=== PATIENT | male | born 1955 | race Two or more races ===

== ENCOUNTER 2021-11-07 13:20 | Observation (INO) | payer OTHER ==
[2021-11-07 13:40] VITALS: BMI 23.0
[2021-11-07] MEDS ORDERED: PANTOPRAZOLE SODIUM 40 MG VIAL IVPUSH ONE (14:19)
[2021-11-07] MEDS ORDERED: PANTOPRAZOLE SODIUM 40 MG VIAL ONE (14:55)
[2021-11-07 15:41] LABS: BASO % 0.5 % (0-2.0); EOS % 0.7 % (0-4.5); HEMATOCRIT 27.9 % (35.4-49); HEMOGLOBIN 9.2 GM/dL (11.7-16.9); LYMPH % 20.5 % (8-40); MCH 30.4 pg (25.7-33.7); MCHC 33.1 g/dl (32.0-35.9); MEAN CELL VOLUME 91.9 fl (80-96); MONO % 5.9 % (3.8-10.2); NEUT % 72.4 % (42.8-82.8); PLATELET COUNT 272 10^3/uL (134-434); RBC 3.04 M/mm3 (4.00-5.60); WHITE BLOOD COUNT 9.6 K/mm3 (4.0-10.0)
[2021-11-07 15:46] LABS: INR 1.08 (0.83-1.09); PROTHROMBIN TIME (PATIENT) 12.4 SEC (9.7-13.0)
[2021-11-07 15:49] LABS: ACTIVATED PTT 27.4 SECONDS (25.2-36.5)
[2021-11-07 16:03] LABS: ALBUMIN 3.6 g/dl (3.4-5.0); BLOOD UREA NITROGEN 31.1 mg/dL (7-18); CALCIUM 8.9 mg/dL (8.5-10.1)
[2021-11-07 16:07] LABS: CREATININE 2.1 mg/dL (0.55-1.3); TOT PROT 7.1 g/dl (6.4-8.2)
[2021-11-07 16:09] LABS: BILIRUBIN,TOTAL 0.5 mg/dL (0.2-1)
[2021-11-07] MEDS: PANTOPRAZOLE SODIUM 80 MG in SODIUM CHLORIDE 100 ML IVPB SCH (22:10)
[2021-11-07] MEDS ORDERED: DEXTROSE 5%-0.45% SALINE 1,000 ML IV SCH (22:30)
[2021-11-08] MEDS: DEXTROSE 5%-0.45% SALINE 1,000 ML IV SCH ×2 (01:17→16:37)
[2021-11-08] MEDS: PANTOPRAZOLE SODIUM 80 MG in SODIUM CHLORIDE 100 ML IVPB SCH (05:01)
[2021-11-08] MEDS ORDERED: PNEUMOC 20-VAL CONJ-DIP CRM/PF 0.5 ML SYRINGE IM ONE (14:00)
[2021-11-08] MEDS: MAG HYDROX/AL HYDROX/SIMETH 30 ML UNIT-DOSE CUP PO SCH ×3 (15:07→23:29)
[2021-11-08] MEDS ORDERED: IRON SUCROSE INJECTION 200 MG in SODIUM CHLORIDE 90 ML IVPB ONE (15:30)
[2021-11-08 17:00] LABS: INR 1.14 (0.83-1.09); PROTHROMBIN TIME (PATIENT) 13.1 SEC (9.7-13.0)
[2021-11-08 17:06] LABS: BASO % 0.6 % (0-2.0); EOS % 0.8 % (0-4.5); HEMOGLOBIN 8.5 GM/dL (11.7-16.9); MCH 30.8 pg (25.7-33.7); MCHC 33.8 g/dl (32.0-35.9); MONO % 7.4 % (3.8-10.2); NEUT % 68.2 % (42.8-82.8); PLATELET COUNT 234 10^3/uL (134-434); RBC 2.75 M/mm3 (4.00-5.60); RDW 14.2 % (11.9-15.9); WHITE BLOOD COUNT 5.3 K/mm3 (4.0-10.0)
[2021-11-08 17:28] LABS: ALBUMIN 3.1 g/dl (3.4-5.0); BILIRUBIN,TOTAL 0.4 mg/dL (0.2-1); BLOOD UREA NITROGEN 19.5 mg/dL (7-18); CALCIUM 8.4 mg/dL (8.5-10.1); CREATININE 1.2 mg/dL (0.55-1.3); TOT PROT 6.2 g/dl (6.4-8.2)
[2021-11-08] MEDS: PANTOPRAZOLE 40 MG TABLET PO SCH (21:28)
[2021-11-09] MEDS: DEXTROSE 5%-0.45% SALINE 1,000 ML IV SCH ×2 (01:53→17:38)
[2021-11-09] MEDS: MAG HYDROX/AL HYDROX/SIMETH 30 ML UNIT-DOSE CUP PO SCH ×3 (05:11→17:37)
[2021-11-09] MEDS ORDERED: LOSARTAN POTASSIUM 25 MG TABLET PO SCH (10:00)
[2021-11-09] MEDS: PANTOPRAZOLE 40 MG TABLET PO SCH ×2 (10:58→21:26)
[2021-11-09] MEDS ORDERED: DOCUSATE SODIUM 100 MG CAPSULE (FP) PO PRN (12:18)
[2021-11-09 12:35] LABS: BASO % 0.4 % (0-2.0); EOS % 0.6 % (0-4.5); HEMATOCRIT 25.8 % (35.4-49); HEMOGLOBIN 8.7 GM/dL (11.7-16.9); LYMPH % 16.8 % (8-40); MCH 30.8 pg (25.7-33.7); MCHC 33.8 g/dl (32.0-35.9); MEAN CELL VOLUME 90.9 fl (80-96); MONO % 7.3 % (3.8-10.2); NEUT % 74.9 % (42.8-82.8); PLATELET COUNT 248 10^3/uL (134-434); RBC 2.83 M/mm3 (4.00-5.60); RDW 14.2 % (11.9-15.9); WHITE BLOOD COUNT 7.2 K/mm3 (4.0-10.0)
[2021-11-09 13:42] LABS: BILIRUBIN,TOTAL 0.2 mg/dL (0.2-1); BLOOD UREA NITROGEN 13.9 mg/dL (7-18)
[2021-11-09 13:44] LABS: CALCIUM 8.4 mg/dL (8.5-10.1)
[2021-11-09 13:45] LABS: ALBUMIN 3.1 g/dl (3.4-5.0); TOT PROT 6.3 g/dl (6.4-8.2)
[2021-11-09] MEDS: FERROUS SO4 325 MG TABLET (FP) PO SCH (17:37)
[2021-11-10] MEDS: MAG HYDROX/AL HYDROX/SIMETH 30 ML UNIT-DOSE CUP PO SCH ×3 (00:14→12:08)
[2021-11-10] MEDS: DEXTROSE 5%-0.45% SALINE 1,000 ML IV SCH (06:33)
[2021-11-10 10:17] LABS: BASO % 0.5 % (0-2.0); EOS % 1.4 % (0-4.5); HEMOGLOBIN 8.4 GM/dL (11.7-16.9); LYMPH % 15.9 % (8-40); MCHC 33.6 g/dl (32.0-35.9); MEAN CELL VOLUME 92.2 fl (80-96); MEAN PLT VOLUME 9.8 fl (7.5-11.1); MONO % 7.2 % (3.8-10.2); PLATELET COUNT 230 10^3/uL (134-434); RBC 2.71 M/mm3 (4.00-5.60); RDW 14.5 % (11.9-15.9); WHITE BLOOD COUNT 7.2 K/mm3 (4.0-10.0)
[2021-11-10] MEDS: PANTOPRAZOLE 40 MG TABLET PO SCH (10:22)
[2021-11-10] MEDS: FERROUS SO4 325 MG TABLET (FP) PO SCH (10:23)
[2021-11-10 10:28] VITALS: BP 140/96; PULSE 94; RESP 16; TEMP 98.7
[2021-11-10 10:37] LABS: CALCIUM 8.3 mg/dL (8.5-10.1)
[2021-11-10 10:39] LABS: ALBUMIN 3.1 g/dl (3.4-5.0); BLOOD UREA NITROGEN 15.3 mg/dL (7-18)
[2021-11-10 10:42] LABS: BILIRUBIN,TOTAL 0.3 mg/dL (0.2-1); TOT PROT 6.3 g/dl (6.4-8.2)
== END 2021-11-10 14:28 | disposition home or self-care (01) ==
LOC: JER 13:20 → JERBED 16:27 → UNDOADMOB 16:27 → INTOOBSV 16:27 → JERBED 11-08 00:36 → J5S 11-08 00:36
PROVIDERS: ADMIT Internal Medicine; ATTEND Internal Medicine
PROC: 3E033GC Introduction of Other Therapeutic Substance into Peripheral Vein, Percutaneous Approach (ICD-10-PCS; 2021-11-08)
PROC: 3E023GC Introduction of Other Therapeutic Substance into Muscle, Percutaneous Approach (ICD-10-PCS; 2021-11-08)
PROC: 0DJ08ZZ Inspection of Upper Intestinal Tract, Via Natural or Artificial Opening Endoscopic (ICD-10-PCS; principal; 2021-11-08 09:00)
DX: K92.2 Gastrointestinal hemorrhage, unspecified (principal); N17.9 Acute kidney failure, unspecified; I10 Essential (primary) hypertension; Z87.442 Personal history of urinary calculi; N20.0 Calculus of kidney; D64.9 Anemia, unspecified; K92.1 Melena
CPT/HCPCS: 36415; 71045-TC-FY; 80048; 80053; 82272; 82728; 82941; 83540; 83550; 84484; 85025; 85045; 85610; 85730; 86140; 86850; 86900; 86901; 88305-TC; 90677; 96365; 96367; 96372; 96375; 99285-25; C9803-CS; G0378; J1756; U0003; U0005

== ENCOUNTER 2022-04-14 04:26 | Day surgery (SDC) | payer OTHER ==
[2022-04-12 14:37] VITALS: BMI 26.9
[2022-04-14 10:50] VITALS: TEMP 97.5
[2022-04-14 11:43] VITALS: BP 130/83; PULSE 55; RESP 11
== END 2022-04-14 11:43 | disposition home or self-care (01) ==
LOC: JASU-ENDO 04:26
PROVIDERS: ATTEND Internal Medicine Gastroenterology
PROC: 0DB78ZX Excision of Stomach, Pylorus, Via Natural or Artificial Opening Endoscopic, Diagnostic (ICD-10-PCS; 2022-04-14)
PROC: 0DB68ZX Excision of Stomach, Via Natural or Artificial Opening Endoscopic, Diagnostic (ICD-10-PCS; 2022-04-14)
PROC: 0DB98ZX Excision of Duodenum, Via Natural or Artificial Opening Endoscopic, Diagnostic (ICD-10-PCS; principal; 2022-04-14 09:30)
DX: K25.9 Gastric ulcer, unspecified as acute or chronic, without hemorrhage or perforation (principal); K44.9 Diaphragmatic hernia without obstruction or gangrene
CPT/HCPCS: 88305-TC; 88342-TC